=== PATIENT | female | born 1965 | race Caucasian/White ===

== ENCOUNTER 2021-09-10 16:45 | Emergency (ER) | payer SELFPAY ==
[~2021-09-10] VITALS: Ht 167.6 cm; Wt 72.6 kg
[2021-09-10 17:17] VITALS: BP 204/87
[2021-09-10] MEDS ORDERED: cloNIDine HCL 0.1 MG TAB PO ONE (18:45)
[2021-09-10 20:50] LABS: Basophils # (auto) 0.1 10 ^3/uL (0-0.2); Eosinophils # (auto) 0.1 10 ^3/uL (0-0.8); Hemoglobin 10.8 g/dL (12.2-16.2); Lymphocytes # (auto) 1.2 10 ^3/uL (0.4-5.4)
[2021-09-10 20:52] LABS: Basophils % (auto) 0.8 % (0.0-2.0); Eosinophils % (auto) 0.9 % (0.0-7.0); Hematocrit 33.9 % (36.0-46.0); Lymphocytes % (auto) 16.5 % (10.0-50.0); Mean Corpuscular Hemoglobin 25.5 pg (28.0-32.0); Mean Corpuscular Hgb Conc. 31.7 g/dL (32.0-36.0); Mean Corpuscular Volume 80.6 fL (80.0-100.0); Monocytes # (auto) 0.6 10 ^3/uL (0-1.3); Monocytes % (auto) 8.9 % (0.0-12.0); Neutrophils # (auto) 5.1 10 ^3/uL (1.6-8.6); Neutrophils % (auto) 72.9 % (37.0-80.0); Red Blood Cells 4.21 10^6/uL (4.0-5.20); Red Cell Distribution Width 18.9 % (11.8-14.3); White Blood Cell 7.1 10^3/uL (4.4-10.8)
[2021-09-10 21:25] LABS: Albumin 3.5 g/dL (3.4-5.0); BUN/Creatinine Ratio 23.8; Bilirubin, Total 0.7 mg/dL (0.2-1.0); Calcium 9.1 mg/dL (8.5-10.1); Total Protein 7.6 g/dL (6.4-8.2)
[2021-09-10] MEDS ORDERED: LOSA-69 PO (21:34)
== END 2021-09-11 08:58 | disposition left against medical advice (07) ==
LOC: ER 16:45 → EDBD 16:45 → ER 09-11 08:58
DX: I16.0 Hypertensive urgency (principal); R07.89 Other chest pain; E11.9 Type 2 diabetes mellitus without complications; I10 Essential (primary) hypertension
CPT/HCPCS: 36415; 71046; 80053; 83880; 84484; 85025; 93005

== ENCOUNTER 2025-07-10 04:21 | Inpatient (IN) | payer MEDICAID, OTHER ==
[~2025-07-10] VITALS: Ht 157.5 cm; Wt 90.0 kg
[~2025-07-10 04:21] MED LIST: LOSA-534 PO
--- NOTE | 2025-07-10 05:03 | ED.PDOC ---
Psychiatric HPI Comments HPI: 60-year-old female who came to ER for alcohol withdrawals. Patient has been sober for over a year, but started drinking alcohol heavily again for the past 2 weeks. Three days ago, intoxicated alcohol, she fell down and hit the back of her head and possibly lost consciousness. Last drank alcohol 3:00 p.m. yesterday. She started having visual hallucinations and mild tremors, she is considered she may be having withdrawal so she decided to come to the ER. She denies any use of prohibited drugs Past Medical History: Hypertension, diabetes on Ozempic Surgical History: Gastric bypass Family History: Denies Personal and Social History: Chronic daily alcohol drinker HPI: Poor Historian. Past Medical History: Past Surgical History: REVIEW OF SYSTEMS: CONSTITUTIONAL: Denies acute: fever, diaphoresis, chills, HEAD: Denies acute: headache, photophobia Eyes: Denies acute: Double vision, vision loss, eye pain, eye discharge. EARS: Denies acute: tinnitus, hearing loss, ear discharge, ear pain, THROAT: Denies acute: sore throat, swelling, difficulty swallowing , pain with swallowing, change in voice. NECK: Denies acute: neck pain, neck swelling, stiff neck. HEART: Denies acute : chest pain, palpitations, LUNGS: Denies acute: SOB, wheezing, cough, hemoptysis ABDOMEN: Denies acute: abdominal pain, Nausea, Vomiting, diarrhea, melena , hematemesis, hematochezia SKIN: Denies acute: rash, redness, lesions, itchiness. EXTREMITIES: Denies acute: calf pain, numbness, tingling, weakness, denies pain in extremity. Denies acute: Low back pain. Neuro: Denies acute: focal neurological deficit, motor or sensory focal neurological deficit, tremors, seizure like activity, confusion, dizziness, change in mental status, loss of bowel or bladder function, cauda equina like symptoms. : Denies acute: dysuria, hematuria, flank pain, increase in urinary frequency. PSYCH: Denies acute: suicidal ideation, homicidal ideation. FEMALE: Denies acute: abnormal vaginal bleeding, foul odor, unusual discharge. PHYSICAL EXAM: General: ----no----acute distress, awake and alert. Head: normocephalic, atraumatic. No raccoon's eyes, no ramirez sign. Neck: supple, trachea is midline, no swelling. Throat: Normal phonation. Eyes:, no erythema, no purulent discharge, no proptosis, no icterus. Heart: regular rate, regular rhythm, no significant murmur appreciated. Lungs: no apparent respiratory distress, Able to speak in full sentences. No wheezing, no rhonchi, no crackles. No stridors Clear to auscultation bilaterally. Abdomen: non tender to palpation, non distended, soft, no guarding, no rebound, + bowel sounds. Neuro: Awake, Alert, oriented to name, self, situation, follows commands GCS=15. Speech is normal. Skin: no petechia, no purpura, no cyanosis, non-pale, not jaundice. Lower extremities: --1/4 b/l - Pitting edema no deformity, no focal swelling, no calf TTP. Makes eye contact. moves all four extremities. Face: no apparent facial droop. Ambulating in the ED independently. ED COURSE: DISCLAIMER: This medical document was created using an electronic medical record system with voice recognition software and computerized dictation system. Although this document has been carefully reviewed, there might still be some phonetic and typographical errors. Occasional wrong-word or "sound-alike" substitutions may have occurred due to the inherent limitations of voice recognition software. These areas are purely typographical due to imperfections of the software programs and do not reflect any compromise in the patient's medical care. Please read the chart carefully and recognize, using context, where these substitutions have occurred. Chief Complaint: Withdrawal Time Seen by MD: 05:01 Primary Care Provider: JENNIFER Reviewed Notes: Nurses Notes, Allergies Information Source: Patient Mode of Arrival: Ambulatory Past Medical History PAST MEDICAL HISTORY: DM, HTN Surgical History: Denies all surgeries EARTH OBSERVATIONS CHIEF SCIENTIST History: No Pertinent EARTH OBSERVATIONS CHIEF SCIENTIST History Family History Family History: Family hx of heart scarlett Social History Smoker: Non-Smoker Alcohol: Heavy Drugs: Denies Drug Use Lives In: Home Was a procedure done? Was a procedure done?: No X-Ray, Labs, Meds, VS Vital Signs Date Time Temp Pulse Resp B/P (MAP) Pulse Ox O2 Delivery O2 Flow Rate FiO2 07/10/25 04:22 97.0 92 18 150/98 97 97.0 Lab Test 07/10/25 05:32 Range/Units White Blood Count Pending Red Blood Count Pending Hemoglobin Pending Hematocrit Pending Mean Corpuscular Volume Pending Mean Corpuscular Hemoglobin Pending Mean Corpuscular Hemoglobin Concent Pending Red Cell Distribution Width Pending Platelet Count Pending Mean Platelet Volume Pending Neutrophils (%) (Auto) Pending Lymphocytes (%) (Auto) Pending Monocytes (%) (Auto) Pending Basophils (%) (Auto) Pending Neutrophils # (Auto) Pending Lymphocytes # (Auto) Pending Monocytes # (Auto) Pending Sodium Level Pending Potassium Level Pending Chloride Level Pending Carbon Dioxide Level Pending Anion Gap Pending Blood Urea Nitrogen Pending Creatinine Pending Glomerular Filtration Rate Calc Pending BUN/Creatinine Ratio Pending Serum Glucose Pending Lactic Acid Level Pending Calcium Level Pending Magnesium Level Pending Total Bilirubin Pending Aspartate Amino Transferase (AST) Pending Alanine Aminotransferase (ALT) Pending Alkaline Phosphatase Pending Troponin I High Sensitivity Pending Total Protein Pending Albumin Pending Plasma/Serum Blood Alcohol Pending [place] [id number] Ph: [phone] DIAGNOSTIC IMAGING Diagnostic Imaging Report : [id number] Signed PATIENT: ELOY MORSE ACCT: [id number] UNIT: [id number] : 1965 LOC: ER ROOM / BED: / AGE / SEX: 60 / F ADM STATUS: REG ER SERVICE 0501 ORDERING PHYSICIAN: ROLAN LUA DO PROCEDURE(s): HWOCT - HEAD WITHOUT CONTRAST REASON: FALL ORDER NUMBER(s): [id number], ACCESSION NUMBER(s): [id number] EXAM: CT HEAD WITHOUT CONTRAST HISTORY: FALL COMPARISON: CT HEAD WITHOUT CONTRAST on DOS: 07/08/25 TECHNIQUE: Noncontrast axial CT images of the head were performed. Sagittal and coronal reformatted images were obtained. This CT exam was performed using 1 or more of the following dose reduction techniques: Automated exposure control, adjustment of the mA and/or kv according to patient size, or the use of iterative reconstruction techniques. Radiation Dose: CTDI volume is 53.99 mGy. Dose-length product is 863.9 mGy*cm FINDINGS: No intracranial hemorrhage, mass, midline shift, hydrocephalus, or evidence of acute large vessel infarct. There is decreased attenuation in the right frontal white matter. There are postoperative changes of bilateral cataract extraction surgery. The partially-visualized paranasal sinuses are clear. The bilateral mastoid air cells and middle ear spaces are clear. No cranial fracture. There is left parietal scalp edema. IMPRESSION: 1. No acute intracranial process. 2. Chronic ischemic changes in the right frontal white matter. 3. Left parietal scalp edema without underlying cranial fracture. ATED BY: FAB RAMIREZ MD DICTATED DATE/TIME: 07/10/25546 SIGNED BY: FAB RAMIREZ MD SIGNED DATE/TIME: 07/10/25546 CC: Time of 1ST Reevaluation: 05:03 Reevaluation 1ST: Unchanged Patient Education/Counseling: Diagnosis, Treatment Family Education/Counseling: No Family Present Departure 1 Departure Time of Disposition: 05:04 Impression: Primary Impression: Alcohol abuse Additional Impressions: Alcohol withdrawal Hallucinations due to alcohol Closed head injury Disposition: ADMITTED INPATIENT Admit to: Tele Condition: Guarded Discharged With: Self Critical Care Note Critical Care Time?: No I personally scribed for ROLAN LUA DO ([email or web address]) on 07/10/25 at 05:03. Electronically submitted by Rich Ya ([email or web address]). I personally scribed for ROLAN LUA DO ([email or web address]) on 07/10/25 at 05:04. Electronically submitted by Rich Ya ([email or web address]). I personally scribed for ROLAN LUA DO ([email or web address]) on 07/10/25 at 05:11. Electronically submitted by Rich Ya ([email or web address]). ROLAN LUA DO Jul 10, 2025 05:03
--- NOTE | 2025-07-10 05:50 | DVH ---
EXAM: CT HEAD WITHOUT CONTRAST HISTORY: FALL COMPARISON: CT HEAD WITHOUT CONTRAST on DOS: 07/08/25 TECHNIQUE: Noncontrast axial CT images of the head were performed. Sagittal and coronal reformatted images were obtained. This CT exam was performed using 1 or more of the following dose reduction techniques: Automated exposure control, adjustment of the mA and/or kv according to patient size, or the use of iterative reconstruction techniques. Radiation Dose: CTDI volume is 53.99 mGy. Dose-length product is 863.9 mGy*cm FINDINGS: No intracranial hemorrhage, mass, midline shift, hydrocephalus, or evidence of acute large vessel infarct. There is decreased attenuation in the right frontal white matter. There are postoperative changes of bilateral cataract extraction surgery. The partially-visualized paranasal sinuses are clear. The bilateral mastoid air cells and middle ear spaces are clear. No cranial fracture. There is left parietal scalp edema. IMPRESSION: 1. No acute intracranial process. 2. Chronic ischemic changes in the right frontal white matter. 3. Left parietal scalp edema without underlying cranial fracture.
[2025-07-10] MEDS: THIAMINE HCL 100 MG TAB PO ONE (06:25)
[2025-07-10 06:28] LABS: Hematocrit 33.8 % (36.0-46.0); Hemoglobin 11.1 g/dL (12.2-16.2); Mean Corpuscular Hemoglobin 31.4 pg (28.0-32.0); Mean Corpuscular Volume 95.8 fL (80.0-100.0); Nucleated Red Blood Cells % 0.0 %
[2025-07-10] MEDS: SODIUM CHLORIDE 0.9% 1,000 ML IV ONE ×2 (06:30→10:56)
[2025-07-10 06:33] LABS: Alanine Aminotransferase 21 U/L (7-40); Albumin 4.0 g/dL (3.2-4.8); BUN/Creatinine Ratio 15.7 (10.0-20.0); Blood Urea Nitrogen 16 mg/dL (9-23); Calcium 8.8 mg/dL (8.7-10.4); Carbon Dioxide 27 mmol/L (20-31); Magnesium 1.7 mg/dL (1.6-2.6); Potassium 3.9 mmol/L (3.5-5.1); Sodium 144 mmol/L (136-145); Total Protein 6.9 g/dL (5.7-8.2)
[2025-07-10 06:34] LABS: Bilirubin, Total 0.5 mg/dL (0.2-1.0)
[2025-07-10 07:01] LABS: Alkaline Phosphatase 175 U/L (46-116); Glucose 122 mg/dL (74-106)
[2025-07-10] MEDS: LORazepam 2MG/ML-1ML VIAL IV ONE (07:02)
[2025-07-10 07:05] LABS: Urine Protein, UAD TRACE (Negative)
[2025-07-10 09:07] LABS: Anion Gap 8 (5-15)
[2025-07-10] MEDS ORDERED: ENOXAPARIN SOD 40 MG/0.4 ML SYRINGE SC SCH (09:30)
[2025-07-10] MEDS ORDERED: DOCUSATE SOD 100 MG CAP PO PRN (09:30)
[2025-07-10] MEDS ORDERED: ONDANSETRON HCL 4 MG/2 ML VIAL IV PRN (09:30)
[2025-07-10] MEDS: SODIUM CHLORIDE 0.9% 1,000 ML IV SCH (09:30)
[2025-07-10] MEDS ORDERED: THIAMINE 100mg/ml INJ (200mg/2ml VIAL) IV ONE (09:45)
[2025-07-10] MEDS ORDERED: LORazepam 2MG/ML-1ML VIAL IV PRN (09:45)
--- NOTE | 2025-07-10 09:48 | DVHHPRES ---
History of Present Illness Resident Creating Document: DOREEN PALM RESIDENT History of Present Illness Skinner,a 60-year-old female with a history of hypertension, diabetes (on Ozempic), alcohol abuse and gastric bypass surgery presents to the ED for evaluation of alcohol withdrawal. Although she had been sober for over a year, she resumed heavy alcohol use over the past two weeks. She last consumed alcohol at 3:00 p.m. yesterday and began experiencing visual hallucinations and mild tremors, prompting her to seek care. Three days ago, while intoxicated, she fell and struck the back of her head, possibly losing consciousness. She denies use of illicit drugs and reports chronic daily alcohol consumption. Previously seen earlier this week for similar complaints patient left AMA. Past Medical History: Hypertension, diabetes on Ozempic, GERD Surgical History: Gastric bypass Family History: Non contributory Personal and Social History: Chronic daily alcohol drinker, last alcohol non - forthcoming Review of Systems Constitutional: Yes: Weakness, Malaise; No: Fever, Chills, Sweats, Other Eyes: No: Pain, Vision change, Conjunctivae inflammation, Eyelid inflammation, Other, Redness ENT: No: Ear pain, Ear discharge, Nose pain, Nose discharge, Nose congestion, Mouth pain, Mouth swelling, Throat pain, Throat swelling, Other Respiratory: No: Cough, Dry, Shortness of breath, SOB with excertion, Wheezing, Hemoptysis, Pleuritic Pain, Sputum, Wheezing, Other Cardiovascular: Palpitations; No: Chest Pain, Orthopnea, Paroxysmal Noc. Dyspnea, Edema, Lt Headedness, Other Gastrointestinal: Nausea; No: Vomiting, Abdominal Pain, Diarrhea, Constipation, Melena, Hematochezia, Other Genitourinary: Dysuria, Frequency, Incontinence; No Hematuria, No Retention, No Other Musculoskeletal: No: other, neck pain, shoulder pain, arm pain, back pain, hand pain, leg pain, foot pain Skin: No: Rash, Lesions, Jaundice, Bruising, Other Neurological: Weakness, Incoordination, Other (recurrent fall); No: Numbness, Change in speech, Confusion, Seizures Allergies: Coded Allergies: No Known Drug Allergy (Verified Allergy, Unknown, 07/10/25) Exam Vital Signs Vital Signs Date Time Temp Pulse Resp B/P (MAP) Pulse Ox O2 Delivery O2 Flow Rate FiO2 07/10/25 08:00 97.2 83 18 179/109 (132) 95 97.2 07/10/25 06:30 Room Air General Appearance: Alert, Oriented X3, mild distress HEENT: Atraumatic, PERRLA, EOMI, Other (dry mucosa) Respiratory: Clear to auscultation, Normal air movement Cardiovascular: Regular rate, Normal S1, Normal S2, No murmurs Abdominal: Normal bowel sounds, Soft, No tenderness, No hepatospenomegaly, No masses Extremities: No clubbing, No cyanosis, Other (mild tremors b/l ) Skin: No rashes, No breakdown, No significant lesion Neuro: Normal gait, Normal speech, Strength at 5/5 X4 ext, Normal tone, Other Psych/Mental Status: Other (anxious. ) Labs/Xrays Labs Test 07/10/25 06:43 07/10/25 05:32 Range/Units Urine Color Yellow Yellow Urine Clarity Clear Clear Urine pH 6.0 5.0-9.0 Urine Specific Theodore 1.020 1.001-1.035 Urine Protein Trace H Negative Urine Ketones Negative Negative Urine Blood Negative Negative /uL Urine Nitrite Negative Negative Urine Bilirubin Negative Negative Urine Urobilinogen 2 H Negative mg/dL Urine Leukocyte Esterase 2+ Negative /uL Urine RBC 1 0 - 4 /hpf Urine Microscopic WBC 6 H 0-5 /HPF Urine Squamous Epithelial Cells Few <5 /hpf Urine Bacteria None seen None Seen /hpf Urine Glucose Normal Normal mg/dL White Blood Count 6.8 4.4-10.8 10^3/uL Red Blood Count 3.53 L 4.0-5.20 10^6/uL Hemoglobin 11.1 L 12.2-16.2 g/dL Hematocrit 33.8 L 36.0-46.0 % Mean Corpuscular Volume 95.8 80.0-100.0 fL Mean Corpuscular Hemoglobin 31.4 28.0-32.0 pg Mean Corpuscular Hemoglobin Concent 32.8 32.0-36.0 g/dL Red Cell Distribution Width 16.7 H 11.8-14.3 % Platelet Count 222 140-450 10^3/uL Mean Platelet Volume 7.6 6.9-10.8 fL Neutrophils (%) (Auto) 75.2 37.0-80.0 % Lymphocytes (%) (Auto) 15.3 10.0-50.0 % Monocytes (%) (Auto) 6.9 0.0-12.0 % Eosinophils (%) (Auto) 2.2 0.0-7.0 % Basophils (%) (Auto) 0.4 0.0-2.0 % Neutrophils # (Auto) 5.1 1.6-8.6 10 ^3/uL Lymphocytes # (Auto) 1.0 0.4-5.4 10 ^3/uL Monocytes # (Auto) 0.5 0-1.3 10 ^3/uL Eosinophils # (Auto) 0.1 0-0.8 10 ^3/uL Basophils # (Auto) 0 0-0.2 10 ^3/uL Nucleated Red Blood Cells 0.0 % Sodium Level 144 136-145 mmol/L Potassium Level 3.9 3.5-5.1 mmol/L Chloride Level 98-107 mmol/L Carbon Dioxide Level 27 20-31 mmol/L Anion Gap 8 5-15 Blood Urea Nitrogen 16 9-23 mg/dL Creatinine 1.02 0.550-1.02 mg/dL Glomerular Filtration Rate Calc 63 >90 mL/min BUN/Creatinine Ratio 15.7 10.0-20.0 Serum Glucose 122 H 74-106 mg/dL Lactic Acid Level 1.4 0.4-2.0 mmol/L Calcium Level 8.8 8.7-10.4 mg/dL Magnesium Level 1.7 1.6-2.6 mg/dL Total Bilirubin 0.5 0.2-1.0 mg/dL Aspartate Amino Transferase (AST) 22 13-40 U/L Alanine Aminotransferase (ALT) 21 7-40 U/L Alkaline Phosphatase 175 H 46-116 U/L Troponin I High Sensitivity 18 </=34 ng/L Total Protein 6.9 5.7-8.2 g/dL Albumin 4.0 3.2-4.8 g/dL Plasma/Serum Blood Alcohol < 3.0 <10 mg/dL SEPSIS Sepsis Screen Date sepsis recognized/suspect: Jul 10, 2025 Time Sepsis recognized/suspect: 426 Recent Procedure: No On Antibiotic Therapy: No Respiratory Rate >20: No Heart Rate >90: Yes Temp<36 C (96.8 F) or >38.3 C: No SBP <90 or MAP <65 mmHG: No New Acute Mental Status Change: No Is the patient on CPAP, BIPAP,: No Physician Orders Compliance Officer (07/10/25 ) Electrocardigram (07/10/25 05:01) Head Without Contrast (07/10/25 05:01) Admit (07/10/25:24) Allergies (07/10/25:) Code Status (07/10/25:) Sodium Chloride 0.9% (07/10/25 09:30) Ondansetron Hcl (Zofran) (07/10/25 09:30) Docusate Sodium Capsule (Colace Capsule) (07/10/25 09:30) Multiple Vitamin Tablet (Mvi Tab) (07/10/25 10:00) Fall Risk Precautions In Place QSHIFT (07/10/25:) Complete Blood Count (07/11/25 04:00) Comprehensive Metabolic Panel (07/11/25 04:00) Echo 2d Mode Cardiac Dop (07/10/25:24) Condition: Serious (07/10/25:24) Clear Liq Diet (07/10/25 Breakfast) Morphine Sulfate Injection (07/10/25 09:30) Sequential Compression Device (07/10/25 ) Ceftriaxone 1gm/50ml (Rocephin) (07/10/25 10:00) Labetalol Hcl (Labetalol Hcl) (07/10/25 09:30) Drug Screen (07/10/25 09:33) Lipase (07/10/25 09:33) Vitamin B12 (07/10/25 09:33) Folate (Folic Acid) (07/10/25 09:33) Pt Request For Service (07/10/25 09:33) Accucheck (07/10/25 09:33) Sodium Chloride 0.9% (07/10/25 09:45) Magnesium (07/10/25 09:33) Chest Two Views Routine (07/10/25 09:33) Thiamine Tab (07/10/25 10:00) Folic Acid Tablet (07/10/25 10:00) Multiple Vitamin Tablet (Mvi Tab) (07/10/25 10:00) Multiple Vitamin Tablet (Mvi Tab) (07/10/25 09:45) D5w 5% (Dextrose 5%) W/Folic Acid (11/9/25 09:45) Lorazepam 2mg/Ml Inj (Ativan Inj) (07/10/25 09:45) Etoh Withdrawal Assessment (07/10/25 09:33) Etoh Withdrawal Assessment NOW (07/10/25 09:33) Thiamine Inj (07/10/25 09:45) Enoxaparin Sodium (Lovenox) (07/10/25 10:00) Fluoxetine Capsule (Prozac Capsule) (07/10/25 10:00) Losartan Tablet (Cozaar Tablet) (07/10/25 10:00) Prothrombin Time W/ Inr (07/10/25 09:45) Vital Signs Date Time Temp Pulse Resp B/P (MAP) Pulse Ox O2 Delivery O2 Flow Rate FiO2 07/10/25 08:00 97.2 83 18 179/109 (132) 95 97.2 07/10/25 06:30 94 16 96 Room Air 07/10/25 06:30 98.4 94 16 160/88 (112) 96 98.4 07/10/25 04:22 97.0 92 18 150/98 97 97.0 Laboratory Tests Test 07/10/25 05:32 Lactic Acid Level 1.4 mmol/L (0.4-2.0) White Blood Count 6.8 10^3/uL (4.4-10.8) Medications Medications Dose Ordered Sig/Radha Route Start Time Stop Time Status Last Admin Dose Admin Chlordiazepoxide HCl 25 mg ONCE ONCE PO 07/10/25 06:45 07/10/25 06:46 DC 07/10/25 06:54 25 MG Lorazepam 1 mg ONCE ONCE IV 07/10/25 06:45 07/10/25 06:46 DC 07/10/25 07:02 1 MG Sodium Chloride 1,000 ml @ 1,000 mls/hr Q1H ONCE IV 07/10/25 05:15 07/10/25 06:14 DC 07/10/25 06:30 1,000 MLS/HR Thiamine HCl 100 mg ONCE ONCE PO 07/10/25 05:15 07/10/25 05:16 DC 07/10/25 06:25 100 MG Assessment/Plan Assessment/Plan Assessment and plan: # Acute alcohol withdrawal: moderate risk on CIWA protocol with iv ativan, mvi, folate, and thiamine, tomorrow can consider bannana bags. cxr to r/o aspiration pneumonia, on room air. # Grade 1 obesity 34.7 BMI: weight loss counseling., on home Ozempic, we will hold Ozempic given nausea and vomiting. Careful history to rule out any family history of thyroid cancer. # Uncontrolled essential hypertension: Likely complicated due to medication noncompliance, alcohol abuse, target blood pressure 140/90 or below, IV propranolol, start oral home antihypertensives. Home medication losartan 50 mg p.o. daily, patient do not remember taking medications regularly. # Normocytic anemia: HnH, 11.1, RDW, 60.7, could be dietary, denies any active bleeding. dietary intake of iron to continue. # Likely UTI: nonspecific symptoms, lower abdominal pain, rule out other causes of abdominal pain, lipase, lactic acid negative. iv ceftriaxone to continue. # Recurrent fall: Likely due to alcohol intoxication, folate and b12 to check, ambulatory. Patient fell down this time on head, no acute local neuromuscular deficits noted. Mildly agitated likely due to withdrawals, CT head negative for intracranial acute processes but left parietal scalp edema likely due to blunt trauma. Pain control, check for B12, folate, replenished, physical therapy before discharge. For safe discharge. Chronic ischemic changes in the right frontal white matter likely due to underlying vascular/hypertensive disease. # Unknown LVEF: Known LVH, hypertensive hydralazine, blood pressure control, given severe alcohol abuse, ruled out dilated cardiomyopathy/echo/LVEF f to check. # GERD/alcohol gastritis: Continue PPI # Chronic back pain: Ibuprofen and cyclobenzaprine, we will hold NSAIDs, PT eval, for now can use lidocaine patch as needed. Gabapentin 400 mg t.i.d., can restart as it will help also with the alcohol withdrawal symptoms. # Known depression/anxiety disorder: Fluoxetine 40 mg daily to continue. PUD prophylaxis: protonix 40mg DVT prophylaxis: Levonox 40mg Barriers to discharge: Medical diagnosis and management in progress. Patient lives with family. Independent for ADL. PT and SW consult as needed. PCP: Non-adherence Case discussed with Dr. Lares. Code Status: Full Code/ DNR+DNI/ Modified Chemical Code. Discussion needed total 29 minutes bedside. Plan discussed with: Patient My Orders Orders - DOREEN PALM RESIDENT Procedure Category Date Status Time Admit ADMIT 07/10/25 Transmitted 09:24 Allergies MARLENI 07/10/25 In Process 09:24 Code Status CODE 07/10/25 Transmitted 09:24 Sodium Chloride 0.9% PHA 07/10/25 In Process 09:30 Ondansetron Hcl PHA 07/10/25 In Process (Zofran) 09:30 Docusate Sodium PHA 07/10/25 In Process Capsule (Colace 09:30 Multiple Vitamin PHA 07/10/25 In Process Tablet (Mvi Tab) 10:00 Fall Risk Precautions MARLENI 07/10/[address] 09:24 Complete Blood Count LAB 07/11/25 Verified 04:00 Comprehensive LAB 07/11/25 Verified Metabolic Panel 04:00 Echo 2d Mode Cardiac US 07/10/25 Logged DOP 09:24 Condition: Serious MARLENI 07/10/25 In Process 09:24 Clear Liq Diet DIET 07/10/25 Transmitted Breakfast Morphine Sulfate PHA 07/10/25 In Process Injection 09:30 Sequential MARLENI 07/10/25 In Process Compression Device Ceftriaxone 1gm/50ml PHA 07/10/25 In Process (Rocephin) 10:00 Labetalol Hcl PHA 07/10/25 In Process (Labetalol Hcl) 09:30 Drug Screen LAB 07/10/25 Logged 09:33 Lipase LAB 07/10/25 Logged 09:33 Vitamin B12 LAB 07/10/25 Logged 09:33 Folate (Folic Acid) LAB 07/10/25 Logged 09:33 Pt Request For Service PT 07/10/25 Logged 09:33 Accucheck ED NURSING 07/10/25 Transmitted 09:33 Sodium Chloride 0.9% PHA 07/10/25 Logged 09:45 Magnesium LAB 07/10/25 Logged 09:33 Chest Two Views XY 07/10/25 Logged Routine 09:33 Thiamine Tab PHA 07/10/25 Logged 10:00 Folic Acid Tablet PHA 07/10/25 Logged 10:00 Multiple Vitamin PHA 07/10/25 Logged Tablet (Mvi Tab) 10:00 Multiple Vitamin PHA 07/10/25 Logged Tablet (Mvi Tab) 09:45 D5w 5% (Dextrose 5%) PHA 07/10/25 Logged W/Folic Acid 09:45 Lorazepam 2mg/Ml Inj PHA 07/10/25 Logged (Ativan Inj) 09:45 Etoh Withdrawal MARLENI 07/10/25 In Process Assessment 09:33 Etoh Withdrawal MARLENI 07/10/25 In Process Assessment 09:33 Thiamine Inj PHA 07/10/25 Logged 09:45 Enoxaparin Sodium PHA 07/10/25 In Process (Lovenox) 10:00 Fluoxetine Capsule PHA 07/10/25 Logged (Prozac Capsule) 10:00 Losartan Tablet PHA 07/10/25 Logged (Cozaar Tablet) 10:00 Prothrombin Time W/ LAB 07/10/25 Transmitted INR 09:45 Date of Service: Jul 10, 2025 Billing Provider: CHAN LARES MD Common Visit Codes: [id number] INP/OBS CARE (HIGH) Secondary Visit Codes: [id number] CARE PLAN 30 MINUTES DOREEN PALM RESIDENT Jul 10, 2025 09:48
[2025-07-10] MEDS ORDERED: FOLIC ACID 1 MG TAB PO SCH (10:00)
[2025-07-10] MEDS ORDERED: MULTIPLE VITAMIN TAB PO SCH (10:00)
[2025-07-10 10:23] LABS: Lipase 39.0 U/L (12-53)
--- NOTE | 2025-07-10 10:23 | DVH ---
XY CHEST TWO VIEWS ROUTINE, HISTORY: rule out aspiration, right lower lobe aspiration. COMPARISON: XY CHEST TWO VIEWS ROUTINE on DOS: 07/08/25, XR CHEST 2 VIEWS on DOS: 05/12/23 XY CHEST TWO VIEWS ROUTINE on DOS: 07/08/25, XR CHEST 2 VIEWS on DOS: 05/12/23 TECHNICAL DATA: 2 view of the chest was obtained. FINDINGS: Lines and tubes: None Cardiomediastinal silhouette: normal Pulmonary vasculature: normal Lung expansion: normal Lung airspace: normal Lung interstitium: normal Pleura: normal Pneumothorax: no Bones: Unremarkable Other: no IMPRESSION: No acute intrathoracic abnormality.
[2025-07-10 10:24] LABS: Magnesium 1.7 mg/dL (1.6-2.6)
[2025-07-10] MEDS: MULTIPLE VITAMIN TAB PO ONE (10:36)
[2025-07-10] MEDS: ENOXAPARIN SOD 40 MG/0.4 ML SYRINGE SC SCH (10:36)
[2025-07-10] MEDS: LOSARTAN POTASSIUM 25 MG TAB PO SCH (10:36)
[2025-07-10] MEDS: FOLIC ACID 1 MG in D5W 5% 50 ML INJ ONE (10:56)
[2025-07-10 11:50] LABS: INR 1.01 (0.9-1.15); Prothrombin Time 10.7 sec (9.3-11.8)
--- NOTE | 2025-07-10 13:28 | DVHSR ---
APPROVED REPORT EXAM: Two-dimensional and M-mode echocardiogram with Doppler and color Doppler. Blood Pressure: 179/109 mmHg INDICATION Rule out structural heart disease RISK FACTORS Obesity: Height: 5' 2", Weight: 189 DIMENSIONS LVDd 4.5 (3.8-5.7cm) LA (2D) 5.1 (1.9-4.0cm) Aortic Root 2.8 (2.0-3.7cm) LVDs 3.3 (2.5-4.0cm) LA (MM) (1.9-4.0cm) Aortic Cusp Exc 1.8 (1.5-2.0cm) EF (%) 55.0 (55-70%) Rt. Atrium 4.8 (1.9-4.0cm) Asc. Aorta cm IVSd 1.2 (0.7-1.1cm) RV (D) (1.8-2.4cm) PWd 1.1 (0.7-1.1cm) Mitral Valve Mitral Mitral Stenosis E wave 1.20m/s MV Mean GR. mmHg A wave 1.40m/s MV Peak GR. mmHg E/A ratio 0.9 2D MVA cm2 Aortic Valve Aortic Valve Aortic Stenosis V1 0.90m/s AO Mean GR. 3mmHg V2 1.20m/s AO Peak GR. 6mmHg LVOT Diameter 2.2 (1.8-2.4cm) Doppler LEO 2.85cm2 Conclusion LAE FLASH EF >55%
[2025-07-10] MEDS: MORPHINE SULFATE 4 MG/ML SYR/VIAL ONE (15:24)
[2025-07-10] MEDS: LABETALOL HCL 20 MG/4 ML VL IV PRN (15:25)
[2025-07-10] MEDS: MORPHINE SULFATE INJ 2 MG/ml SYRG IV PRN (15:25)
[2025-07-10 19:00] VITALS: PULSE 73; O2SAT 94
[2025-07-10 22:33] LABS: Benzodiazephine Screen, Urine Neg (NEGATIVE)
[2025-07-10 22:34] LABS: Cannabinoid Screen, Urine Neg (NEGATIVE)
[2025-07-10 23:09] VITALS: BP 184/92; PULSE 67; RESP 20; TEMP 97.7; O2SAT 95
[2025-07-10 23:10] VITALS: BP 184/92; PULSE 67; RESP 20; TEMP 97.7; O2SAT 95
[2025-07-10 23:11] LABS: Amphetamine Screen, Urine Neg (NEGATIVE); Barbiturate Scree,Urine Neg (NEGATIVE); Cocaine Screen, Urine Neg (NEGATIVE); Opiate Scree,Urine Neg (NEGATIVE); Phencyclidine Screen, Urine Neg (NEGATIVE)
[2025-07-11] VITALS (8 sets, daily range): BP systolic 103–174; BP diastolic 61–103; PULSE 66–89; RESP 16–22; TEMP 97.3–97.9; O2SAT 94–99
[2025-07-11 06:52] LABS: Hematocrit 31.4 % (36.0-46.0); Hemoglobin 10.5 g/dL (12.2-16.2); Mean Corpuscular Hemoglobin 32.0 pg (28.0-32.0); Mean Corpuscular Volume 95.6 fL (80.0-100.0); Nucleated Red Blood Cells % 0.1 %
[2025-07-11 07:13] LABS: Alanine Aminotransferase 18 U/L (7-40); Albumin 3.6 g/dL (3.2-4.8); Anion Gap 7 (5-15); BUN/Creatinine Ratio 11.7 (10.0-20.0); Calcium 8.8 mg/dL (8.7-10.4); Carbon Dioxide 28 mmol/L (20-31); Glucose 88 mg/dL (74-106); Potassium 4.0 mmol/L (3.5-5.1); Sodium 143 mmol/L (136-145); Total Protein 6.2 g/dL (5.7-8.2)
[2025-07-11 07:14] LABS: Bilirubin, Total 0.5 mg/dL (0.2-1.0)
[2025-07-11 07:24] LABS: Alkaline Phosphatase 148 U/L (46-116); Blood Urea Nitrogen 9 mg/dL (9-23); Chloride 108 mmol/L (98-107)
[2025-07-11] MEDS: THIAMINE HCL 100 MG TAB PO SCH (08:47)
[2025-07-11] MEDS: FOLIC ACID 1 MG TAB PO SCH (08:48)
[2025-07-11] MEDS: MULTIPLE VITAMIN TAB PO SCH (08:48)
[2025-07-11] MEDS ORDERED: MULTIPLE VITAMIN TAB PO SCH (10:00)
--- NOTE | 2025-07-11 13:02 | DVHPN2 ---
Subjective no hallucinatios or tremors today Reviewed: H&P Changes from previous H/P or p: No Changes Eyes: No Pain, No Vision change, No Conjunctivae inflammation, No Eyelid inflammation, No Other, No Redness ENT: No Ear pain, No Ear discharge, No Nose pain, No Nose discharge, No Nose congestion, No Mouth pain, No Mouth swelling, No Throat pain, No Throat swelling, No Other Cardiovascular: No Chest Pain; Palpitations; No Orthopnea, No Paroxysmal Noc. Dyspnea, No Edema, No Lt Headedness, No Other Respiratory: No Cough, No Dry, No Shortness of breath, No SOB with excertion, No Wheezing, No Hemoptysis, No Pleuritic Pain, No Sputum, No Other Gastrointestinal: Nausea; No Vomiting, No Abdominal Pain, No Diarrhea, No Constipation, No Melena, No Hematochezia, No Other Genitourinary: Dysuria, Frequency, Incontinence; No Hematuria, No Retention, No Other Musculoskeletal: No other, No neck pain, No shoulder pain, No arm pain, No back pain, No hand pain, No leg pain, No foot pain Skin: No Rash, No Lesions, No Jaundice, No Bruising, No Other Objective Vitals Vital Signs Date Time Temp Pulse Resp B/P (MAP) Pulse Ox O2 Delivery O2 Flow Rate FiO2 07/11/25 11:17 82 171/107 07/11/25 09:00 97.8 20 97 97.8 07/11/25 08:00 Room Air* 0 21 Intake/Output Intake and Output 07/11/25 07:00 Intake Total 230 ml Balance 230 ml Intake Oral 180 ml IV Total 50 ml General Appearance: Alert, Oriented X3 HEENT: Atraumatic Lungs: Clear to auscultation Cardiovascular: Regular rate, Normal S1, Normal S2 Abdomen: Normal bowel sounds Medications Current Medications Medications Dose Ordered Sig/Radha Route Start Time Stop Time Status Last Admin Dose Admin Ondansetron HCl 4 mg Q4HP PRN IV 07/10/25 09:30 Docusate Sodium 100 mg BIDPRN PRN PO 07/10/25 09:30 Morphine Sulfate 2 mg Q4HPRN PRN IV 07/10/25 09:30 07/10/25 15:25 2 MG Ceftriaxone Sodium 50 ml @ 100 mls/hr DAILY IV 07/10/25 10:00 07/11/25 08:50 100 MLS/HR Labetalol HCl 10 mg Q2HPRN PRN IV 07/10/25 09:30 07/11/25 11:17 10 MG Enoxaparin Sodium 40 mg DAILY SC 07/10/25 10:00 07/15/25 11:59 07/11/25 08:49 40 MG Thiamine HCl 100 mg DAILY PO 07/11/25 10:00 07/11/25 08:47 100 MG Multivitamins 1 tab DAILY PO 07/11/25 10:00 07/11/25 08:48 1 TAB Lorazepam 1 mg Q2HPRN PRN IV 07/10/25 09:45 Fluoxetine HCl 40 mg DAILY PO 07/10/25 10:00 07/11/25 08:48 40 MG Losartan Potassium 25 mg DAILY PO 07/10/25 10:00 07/11/25 08:48 25 MG Folic Acid 1 mg DAILY PO 07/11/25 10:00 07/11/25 08:48 1 MG Laboratory Results Laboratory Tests 07/11/25 05:54 Chemistry Test 07/11/25 05:54 Albumin 3.6 g/dL (3.2-4.8) Calcium Level 8.8 mg/dL (8.7-10.4) Total Protein 6.2 g/dL (5.7-8.2) LFT Test 07/11/25 05:54 Alanine Aminotransferase (ALT) 18 U/L (7-40) Alkaline Phosphatase 148 U/L (46-116) H Aspartate Amino Transferase (AST) 21 U/L (13-40) Total Bilirubin 0.5 mg/dL (0.2-1.0) Urinalysis Test 07/10/25 06:43 Urine Color Yellow (Yellow) Urine Clarity Clear (Clear) Urine pH 6.0 (5.0-9.0) Urine Specific [place] 1.020 (1.001-1.035) Urine Protein Trace (Negative) H Urine Ketones Negative (Negative) Urine Blood Negative /uL (Negative) Urine Nitrite Negative (Negative) Urine Bilirubin Negative (Negative) Urine Urobilinogen 2 mg/dL (Negative) H Urine Leukocyte Esterase 2+ /uL (Negative) Urine RBC 1 /hpf (0 - 4) Urine Microscopic WBC 6 /HPF (0-5) H Urine Squamous Epithelial Cells Few /hpf (<5) Urine Bacteria None seen /hpf (None Seen) Urine Glucose Normal mg/dL (Normal) Assessment/Plan Assessment/Plan # Acute alcohol withdrawal: moderate risk on CIWA protocol with iv ativan, mvi, folate, and thiamine, tomorrow can consider bannana bags. cxr to r/o aspiration pneumonia, on room air. # Grade 1 obesity 34.7 BMI: weight loss counseling., on home Ozempic, we will hold Ozempic given nausea and vomiting. Careful history to rule out any family history of thyroid cancer. # Uncontrolled essential hypertension: Likely complicated due to medication noncompliance, alcohol abuse, target blood pressure 140/90 or below, IV propranolol, start oral home antihypertensives. Home medication losartan 50 mg p.o. daily, patient do not remember taking medications regularly. # Normocytic anemia: HnH, 11.1, RDW, 60.7, could be dietary, denies any active bleeding. dietary intake of iron to continue. # Likely UTI: nonspecific symptoms, lower abdominal pain, rule out other causes of abdominal pain, lipase, lactic acid negative. iv ceftriaxone to continue. # Recurrent fall: Likely due to alcohol intoxication, folate and b12 to check, ambulatory. Patient fell down this time on head, no acute local neuromuscular deficits noted. Mildly agitated likely due to withdrawals, CT head negative for intracranial acute processes but left parietal scalp edema likely due to blunt trauma. Pain control, check for B12, folate, replenished, physical therapy before discharge. For safe discharge. Chronic ischemic changes in the right frontal white matter likely due to underlying vascular/hypertensive disease. # Unknown LVEF: Known LVH, hypertensive hydralazine, blood pressure control, given severe alcohol abuse, ruled out dilated cardiomyopathy/echo/LVEF f to check. # GERD/alcohol gastritis: Continue PPI # Chronic back pain: Ibuprofen and cyclobenzaprine, we will hold NSAIDs, PT eval, for now can use lidocaine patch as needed. Gabapentin 400 mg t.i.d., can restart as it will help also with the alcohol withdrawal symptoms. # Known depression/anxiety disorder: Fluoxetine 40 mg daily to continue. Dispo: DC tomorro Plan discussed with: Patient Date of Service: Jul 11, 2025 Billing Provider: HAYDER FARRAR MD Common Visit Codes: [id number] INP/OBS CARE(HIGH) HAYDER FARRAR MD Jul 11, 2025 13:02
[2025-07-11] MEDS: MORPHINE SULFATE 4 MG/ML SYR/VIAL IV PRN (15:37)
[2025-07-12] VITALS (8 sets, daily range): BP systolic 135–175; BP diastolic 53–104; PULSE 72–84; RESP 14–20; TEMP 97.1–98.3; O2SAT 92–97
[2025-07-12] MEDS: HYDROcodone-ACET 5/325MG TAB PO PRN (13:27)
[2025-07-12] MEDS ORDERED: hydrALAZINE HCL 20 MG/ML VL IV PRN (13:45)
--- NOTE | 2025-07-12 14:24 | DVHPN2 ---
Reviewed: H&P Changes from previous H/P or p: No Changes General: Per HPI Eyes: No Pain, No Vision change, No Conjunctivae inflammation, No Eyelid inflammation, No Other, No Redness ENT: No Ear pain, No Ear discharge, No Nose pain, No Nose discharge, No Nose congestion, No Mouth pain, No Mouth swelling, No Throat pain, No Throat swelling, No Other Cardiovascular: No Chest Pain; Palpitations; No Orthopnea, No Paroxysmal Noc. Dyspnea, No Edema, No Lt Headedness, No Other Respiratory: No Cough, No Dry, No Shortness of breath, No SOB with excertion, No Wheezing, No Hemoptysis, No Pleuritic Pain, No Sputum, No Other Gastrointestinal: Nausea; No Vomiting, No Abdominal Pain, No Diarrhea, No Constipation, No Melena, No Hematochezia, No Other Genitourinary: Dysuria, Frequency, Incontinence; No Hematuria, No Retention, No Other Musculoskeletal: No other, No neck pain, No shoulder pain, No arm pain, No back pain, No hand pain, No leg pain, No foot pain Skin: No Rash, No Lesions, No Jaundice, No Bruising, No Other Objective Vitals Vital Signs Date Time Temp Pulse Resp B/P (MAP) Pulse Ox O2 Delivery O2 Flow Rate FiO2 07/12/25 13:24 98.1 79 16 169/74 (105) 95 98.1 07/12/25 08:06 Room Air* 0 21 Intake/Output Intake and Output 07/12/25 07:00 Intake Total 450 ml Balance 450 ml Intake Oral 400 ml IV Total 50 ml # Voids 8 Exam General Appearance: Alert, Oriented X3, mild distress HEENT: Atraumatic, PERRLA, EOMI, Other (dry mucosa) Respiratory: Clear to auscultation, Normal air movement Cardiovascular: Regular rate, Normal S1, Normal S2, No murmurs Abdominal: Normal bowel sounds, Soft, No tenderness, No hepatospenomegaly, No masses Extremities: No clubbing, No cyanosis, Other (mild tremors b/l ) Skin: No rashes, No breakdown, No significant lesion Neuro: Normal gait, Normal speech, Strength at 5/5 X4 ext, Normal tone, Other Psych/Mental Status: Other (anxious. ) General Appearance: Alert, Oriented X3 HEENT: Atraumatic Lungs: Clear to auscultation Cardiovascular: Regular rate, Normal S1, Normal S2 Abdomen: Normal bowel sounds Medications Current Medications Medications Dose Ordered Sig/Radha Route Start Time Stop Time Status Last Admin Dose Admin Ondansetron HCl 4 mg Q4HP PRN IV 07/10/25 09:30 Docusate Sodium 100 mg BIDPRN PRN PO 07/10/25 09:30 Ceftriaxone Sodium 50 ml @ 100 mls/hr DAILY IV 07/10/25 10:00 07/12/25 09:23 100 MLS/HR Enoxaparin Sodium 40 mg DAILY SC 07/10/25 10:00 07/15/25 11:59 07/12/25 09:25 40 MG Thiamine HCl 100 mg DAILY PO 07/11/25 10:00 07/12/25 09:23 100 MG Multivitamins 1 tab DAILY PO 07/11/25 10:00 07/12/25 09:24 1 TAB Lorazepam 1 mg Q2HPRN PRN IV 07/10/25 09:45 Fluoxetine HCl 40 mg DAILY PO 07/10/25 10:00 07/12/25 09:25 40 MG Folic Acid 1 mg DAILY PO 07/11/25 10:00 07/12/25 09:23 1 MG Morphine Sulfate 2 mg Q4HPRN PRN IV 07/11/25 15:00 07/11/25 15:37 2 MG Labetalol HCl 10 mg Q2HPRN PRN IV 07/12/25 11:15 Acetaminophen/ Hydrocodone Bitart 1 tab Q4HPRN PRN PO 07/12/25 11:15 07/12/25 13:27 1 TAB Nifedipine 30 mg DAILY PO 07/13/25 10:00 Hydralazine HCl 10 mg Q6HP PRN IV 07/12/25 13:45 Losartan Potassium 100 mg DAILY PO 07/13/25 10:00 Laboratory Results Laboratory Tests 07/11/25 05:54 Urinalysis Test 07/10/25 06:43 Urine Color Yellow (Yellow) Urine Clarity Clear (Clear) Urine pH 6.0 (5.0-9.0) Urine Specific [place] 1.020 (1.001-1.035) Urine Protein Trace (Negative) H Urine Ketones Negative (Negative) Urine Blood Negative /uL (Negative) Urine Nitrite Negative (Negative) Urine Bilirubin Negative (Negative) Urine Urobilinogen 2 mg/dL (Negative) H Urine Leukocyte Esterase 2+ /uL (Negative) Urine RBC 1 /hpf (0 - 4) Urine Microscopic WBC 6 /HPF (0-5) H Urine Squamous Epithelial Cells Few /hpf (<5) Urine Bacteria None seen /hpf (None Seen) Urine Glucose Normal mg/dL (Normal) Labs and/or images reviewed: Labs reviewed by me, Image(s) reviewed by me Assessment/Plan Assessment/Plan 60-year-old female with a history of hypertension, diabetes (on Ozempic), alcohol abuse and gastric bypass surgery presents to the ED for evaluation of alcohol withdrawal. Although she had been sober for over a year, she resumed heavy alcohol use over the past two weeks. She last consumed alcohol at 3:00 p.m. yesterday and began experiencing visual hallucinations and mild tremors, prompting her to seek care. Three days ago, while intoxicated, she fell and struck the back of her head, possibly losing consciousness. She denies use of illicit drugs and reports chronic daily alcohol consumption. Previously seen earlier this week for similar complaints patient left AMA. 07/12 patient has hypertensive crisis today, alcohol withdrawal has resolved. Waiting for recuperative care placement we should continuing to outpatient. Blood pressure went from 80 to 190, in hypertensive crisis requiring IV hydralazine we will continue care for 1 more day. We will increase losartan to 100 and start Procardia 30. diagnosis Acute alcohol withdrawal Hypertensive crisis/hypertensive urgency Alcohol dependence Obesity grade 1, BMI 34.7 Essential hypertension, poorly controlled Normocytic anemia UTI possible Recurrent falls Hyper trophic cardiomyopathy, likely due to poorly controlled hypertension GERD Alcohol gastritis Chronic back pain History anxiety depression disorder # Acute alcohol withdrawal: moderate risk on CIWA protocol with iv ativan, mvi, folate, and thiamine, tomorrow can consider bannana bags. cxr to r/o aspiration pneumonia, on room air. # Grade 1 obesity 34.7 BMI: weight loss counseling., on home Ozempic, we will hold Ozempic given nausea and vomiting. Careful history to rule out any family history of thyroid cancer. # Uncontrolled essential hypertension: Likely complicated due to medication noncompliance, alcohol abuse, target blood pressure 140/90 or below, IV propranolol, start oral home antihypertensives. Home medication losartan 50 mg p.o. daily, patient do not remember taking medications regularly. # Normocytic anemia: HnH, 11.1, RDW, 60.7, could be dietary, denies any active bleeding. dietary intake of iron to continue. # Likely UTI: nonspecific symptoms, lower abdominal pain, rule out other causes of abdominal pain, lipase, lactic acid negative. iv ceftriaxone to continue. # Recurrent fall: Likely due to alcohol intoxication, folate and b12 to check, ambulatory. Patient fell down this time on head, no acute local neuromuscular deficits noted. Mildly agitated likely due to withdrawals, CT head negative for intracranial acute processes but left parietal scalp edema likely due to blunt trauma. Pain control, check for B12, folate, replenished, physical therapy before discharge. For safe discharge. Chronic ischemic changes in the right frontal white matter likely due to underlying vascular/hypertensive disease. # Unknown LVEF: Known LVH, hypertensive hydralazine, blood pressure control, given severe alcohol abuse, ruled out dilated cardiomyopathy/echo/LVEF f to check. # GERD/alcohol gastritis: Continue PPI # Chronic back pain: Ibuprofen and cyclobenzaprine, we will hold NSAIDs, PT eval, for now can use lidocaine patch as needed. Gabapentin 400 mg t.i.d., can restart as it will help also with the alcohol withdrawal symptoms. # Known depression/anxiety disorder: Fluoxetine 40 mg daily to continue. 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
[2025-07-12] MEDS: LOSARTAN POTASSIUM 50 MG TAB PO ONE (14:53)
[2025-07-13 01:00] VITALS: BP 138/81; PULSE 85; RESP 16; TEMP 98.1; O2SAT 95
[2025-07-13 05:00] VITALS: BP 166/95; PULSE 81; RESP 14; TEMP 98.1; O2SAT 94
[2025-07-13 05:44] LABS: Anion Gap 7 (5-15); Carbon Dioxide 31 mmol/L (20-31); Chloride 103 mmol/L (98-107); Potassium 4.6 mmol/L (3.5-5.1); Sodium 141 mmol/L (136-145)
[2025-07-13 05:45] LABS: Calcium 9.1 mg/dL (8.7-10.4)
[2025-07-13 05:50] LABS: BUN/Creatinine Ratio 14.3 (10.0-20.0); Blood Urea Nitrogen 15 mg/dL (9-23)
[2025-07-13 05:54] LABS: Glucose 111 mg/dL (74-106)
[2025-07-13] MEDS: LABETALOL HCL 20 MG/4 ML VL IV PRN (06:01)
[2025-07-13 08:00] VITALS: PULSE 87; RESP 18; O2SAT 96
[2025-07-13 08:49] VITALS: BP 148/84; PULSE 76; RESP 17; TEMP 97.6; O2SAT 90
[2025-07-13] MEDS: LOSARTAN POTASSIUM 50 MG TAB PO SCH (09:34)
--- NOTE | 2025-07-13 10:19 | DVHPN2 ---
Reviewed: H&P Changes from previous H/P or p: No Changes General: Per HPI Eyes: No Pain, No Vision change, No Conjunctivae inflammation, No Eyelid inflammation, No Other, No Redness ENT: No Ear pain, No Ear discharge, No Nose pain, No Nose discharge, No Nose congestion, No Mouth pain, No Mouth swelling, No Throat pain, No Throat swelling, No Other Cardiovascular: No Chest Pain; Palpitations; No Orthopnea, No Paroxysmal Noc. Dyspnea, No Edema, No Lt Headedness, No Other Respiratory: No Cough, No Dry, No Shortness of breath, No SOB with excertion, No Wheezing, No Hemoptysis, No Pleuritic Pain, No Sputum, No Other Gastrointestinal: Nausea; No Vomiting, No Abdominal Pain, No Diarrhea, No Constipation, No Melena, No Hematochezia, No Other Genitourinary: Dysuria, Frequency, Incontinence; No Hematuria, No Retention, No Other Musculoskeletal: No other, No neck pain, No shoulder pain, No arm pain, No back pain, No hand pain, No leg pain, No foot pain Skin: No Rash, No Lesions, No Jaundice, No Bruising, No Other Objective Vitals Vital Signs Date Time Temp Pulse Resp B/P (MAP) Pulse Ox O2 Delivery O2 Flow Rate FiO2 07/13/25 09:34 162/84 07/13/25 08:49 97.6 76 17 90 97.6 07/12/25 20:00 Room Air* 0 21 Intake/Output Intake and Output 07/13/25 07:00 Intake Total 1575 ml Output Total 0 ml Balance 1575 ml Intake Oral 1525 ml IV Total 50 ml Output Stool Total 0 ml # Voids 13 # Bowel Movements 1 Exam General Appearance: Alert, Oriented X3, mild distress HEENT: Atraumatic, PERRLA, EOMI, Other (dry mucosa) Respiratory: Clear to auscultation, Normal air movement Cardiovascular: Regular rate, Normal S1, Normal S2, No murmurs Abdominal: Normal bowel sounds, Soft, No tenderness, No hepatospenomegaly, No masses Extremities: No clubbing, No cyanosis, Other (mild tremors b/l ) Skin: No rashes, No breakdown, No significant lesion Neuro: Normal gait, Normal speech, Strength at 5/5 X4 ext, Normal tone, Other Psych/Mental Status: Other (anxious. ) General Appearance: Alert, Oriented X3 HEENT: Atraumatic Lungs: Clear to auscultation Cardiovascular: Regular rate, Normal S1, Normal S2 Abdomen: Normal bowel sounds Medications Current Medications Medications Dose Ordered Sig/Radha Route Start Time Stop Time Status Last Admin Dose Admin Ondansetron HCl 4 mg Q4HP PRN IV 07/10/25 09:30 Docusate Sodium 100 mg BIDPRN PRN PO 07/10/25 09:30 Ceftriaxone Sodium 50 ml @ 100 mls/hr DAILY IV 07/10/25 10:00 07/13/25 09:33 100 MLS/HR Enoxaparin Sodium 40 mg DAILY SC 07/10/25 10:00 07/15/25 11:59 07/13/25 09:34 40 MG Thiamine HCl 100 mg DAILY PO 07/11/25 10:00 07/13/25 09:34 100 MG Multivitamins 1 tab DAILY PO 07/11/25 10:00 07/13/25 09:34 1 TAB Lorazepam 1 mg Q2HPRN PRN IV 07/10/25 09:45 Fluoxetine HCl 40 mg DAILY PO 07/10/25 10:00 07/12/25 09:25 40 MG Folic Acid 1 mg DAILY PO 07/11/25 10:00 07/13/25 09:34 1 MG Morphine Sulfate 2 mg Q4HPRN PRN IV 07/11/25 15:00 07/11/25 15:37 2 MG Labetalol HCl 10 mg Q2HPRN PRN IV 07/12/25 11:15 07/13/25 06:01 10 MG Acetaminophen/ Hydrocodone Bitart 1 tab Q4HPRN PRN PO 07/12/25 11:15 07/13/25 05:58 1 TAB Nifedipine 30 mg DAILY PO 07/13/25 10:00 07/13/25 09:33 30 MG Hydralazine HCl 10 mg Q6HP PRN IV 07/12/25 13:45 Losartan Potassium 100 mg DAILY PO 07/13/25 10:00 07/13/25 09:34 100 MG Laboratory Results Laboratory Tests 07/11/25 05:54 07/13/25 04:49 Chemistry Test 07/13/25 04:49 Calcium Level 9.1 mg/dL (8.7-10.4) Urinalysis Test 07/10/25 06:43 Urine Color Yellow (Yellow) Urine Clarity Clear (Clear) Urine pH 6.0 (5.0-9.0) Urine Specific [place] 1.020 (1.001-1.035) Urine Protein Trace (Negative) H Urine Ketones Negative (Negative) Urine Blood Negative /uL (Negative) Urine Nitrite Negative (Negative) Urine Bilirubin Negative (Negative) Urine Urobilinogen 2 mg/dL (Negative) H Urine Leukocyte Esterase 2+ /uL (Negative) Urine RBC 1 /hpf (0 - 4) Urine Microscopic WBC 6 /HPF (0-5) H Urine Squamous Epithelial Cells Few /hpf (<5) Urine Bacteria None seen /hpf (None Seen) Urine Glucose Normal mg/dL (Normal) Labs and/or images reviewed: Labs reviewed by me, Image(s) reviewed by me Assessment/Plan Assessment/Plan 60-year-old female with a history of hypertension, diabetes (on Ozempic), alcohol abuse and gastric bypass surgery presents to the ED for evaluation of alcohol withdrawal. Although she had been sober for over a year, she resumed heavy alcohol use over the past two weeks. She last consumed alcohol at 3:00 p.m. yesterday and began experiencing visual hallucinations and mild tremors, prompting her to seek care. Three days ago, while intoxicated, she fell and struck the back of her head, possibly losing consciousness. She denies use of illicit drugs and reports chronic daily alcohol consumption. Previously seen earlier this week for similar complaints patient left AMA. 07/12 patient has hypertensive crisis today, alcohol withdrawal has resolved. Waiting for recuperative care placement we should continuing to outpatient. Blood pressure went from 80 to 190, in hypertensive crisis requiring IV hydralazine we will continue care for 1 more day. We will increase losartan to 100 and start Procardia 30. 07/13: Patient blood pressure this a.m. is 160s systolic, we will give blood pressure medications and 10:00 a.m., we will watch blood pressure, if blood pressure continues to improve with losartan 100 and Procardia 30, we will discharge home with those medications. Patient remains CIWA score low approximately 0. Alcohol withdrawal resolved. Social workers we will continue to work towards recuperative care as patient goes outpatient. She is currently homeless. diagnosis Acute alcohol withdrawal Hypertensive crisis/hypertensive urgency Alcohol dependence Obesity grade 1, BMI 34.7 Essential hypertension, poorly controlled Normocytic anemia UTI possible Recurrent falls Hyper trophic cardiomyopathy, likely due to poorly controlled hypertension GERD Alcohol gastritis Chronic back pain History anxiety depression disorder # Acute alcohol withdrawal: moderate risk on CIWA protocol with iv ativan, mvi, folate, and thiamine, tomorrow can consider bannana bags. cxr to r/o aspiration pneumonia, on room air. # Grade 1 obesity 34.7 BMI: weight loss counseling., on home Ozempic, we will hold Ozempic given nausea and vomiting. Careful history to rule out any family history of thyroid cancer. # Uncontrolled essential hypertension: Likely complicated due to medication noncompliance, alcohol abuse, target blood pressure 140/90 or below, IV propranolol, start oral home antihypertensives. Home medication losartan 50 mg p.o. daily, patient do not remember taking medications regularly. # Normocytic anemia: HnH, 11.1, RDW, 60.7, could be dietary, denies any active bleeding. dietary intake of iron to continue. # Likely UTI: nonspecific symptoms, lower abdominal pain, rule out other causes of abdominal pain, lipase, lactic acid negative. iv ceftriaxone to continue. # Recurrent fall: Likely due to alcohol intoxication, folate and b12 to check, ambulatory. Patient fell down this time on head, no acute local neuromuscular deficits noted. Mildly agitated likely due to withdrawals, CT head negative for intracranial acute processes but left parietal scalp edema likely due to blunt trauma. Pain control, check for B12, folate, replenished, physical therapy before discharge. For safe discharge. Chronic ischemic changes in the right frontal white matter likely due to underlying vascular/hypertensive disease. # Unknown LVEF: Known LVH, hypertensive hydralazine, blood pressure control, given severe alcohol abuse, ruled out dilated cardiomyopathy/echo/LVEF f to check. # GERD/alcohol gastritis: Continue PPI # Chronic back pain: Ibuprofen and cyclobenzaprine, we will hold NSAIDs, PT eval, for now can use lidocaine patch as needed. Gabapentin 400 mg t.i.d., can restart as it will help also with the alcohol withdrawal symptoms. # Known depression/anxiety disorder: Fluoxetine 40 mg daily to continue. 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
[2025-07-13 12:46] VITALS: BP 134/88; PULSE 87; RESP 18; TEMP 97.2; O2SAT 96
[2025-07-13] MEDS ORDERED: LOSA100T14 PO (13:47)
[2025-07-13] MEDS ORDERED: NIFE1TAB36 PO (13:47)
--- NOTE | 2025-07-13 13:48 | DVHDS2 ---
Discharge Summary Date of Admission Jul 10, 2025 at 09:24 Date of Discharge: Jul 13, 2025 Labs/Diagnostic Data: Laboratory Results Test 07/13/25 04:49 07/11/25 05:54 07/10/25 11:02 07/10/25 06:43 Sodium Level 141 mmol/L (136-145) Potassium Level 4.6 mmol/L (3.5-5.1) Chloride Level 103 mmol/L (98-107) Carbon Dioxide Level 31 mmol/L (20-31) Anion Gap 7 (5-15) Blood Urea Nitrogen 15 mg/dL (9-23) Creatinine 1.05 mg/dL (0.550-1.02) Glomerular Filtration Rate Calc 60 mL/min (>90) BUN/Creatinine Ratio 14.3 (10.0-20.0) Serum Glucose 111 mg/dL (74-106) Calcium Level 9.1 mg/dL (8.7-10.4) White Blood Count 5.3 10^3/uL (4.4-10.8) Red Blood Count 3.29 10^6/uL (4.0-5.20) Hemoglobin 10.5 g/dL (12.2-16.2) Hematocrit 31.4 % (36.0-46.0) Mean Corpuscular Volume 95.6 fL (80.0-100.0) Mean Corpuscular Hemoglobin 32.0 pg (28.0-32.0) Mean Corpuscular Hemoglobin Concent 33.4 g/dL (32.0-36.0) Red Cell Distribution Width 16.8 % (11.8-14.3) Platelet Count 209 10^3/uL (140-450) Mean Platelet Volume 7.6 fL (6.9-10.8) Neutrophils (%) (Auto) 73.5 % (37.0-80.0) Lymphocytes (%) (Auto) 16.7 % (10.0-50.0) Monocytes (%) (Auto) 7.3 % (0.0-12.0) Eosinophils (%) (Auto) 2.1 % (0.0-7.0) Basophils (%) (Auto) 0.4 % (0.0-2.0) Neutrophils # (Auto) 3.9 10 ^3/uL (1.6-8.6) Lymphocytes # (Auto) 0.9 10 ^3/uL (0.4-5.4) Monocytes # (Auto) 0.4 10 ^3/uL (0-1.3) Eosinophils # (Auto) 0.1 10 ^3/uL (0-0.8) Basophils # (Auto) 0 10 ^3/uL (0-0.2) Nucleated Red Blood Cells 0.1 % Total Bilirubin 0.5 mg/dL (0.2-1.0) Aspartate Amino Transferase (AST) 21 U/L (13-40) Alanine Aminotransferase (ALT) 18 U/L (7-40) Alkaline Phosphatase 148 U/L (46-116) Total Protein 6.2 g/dL (5.7-8.2) Albumin 3.6 g/dL (3.2-4.8) Prothrombin Time 10.7 sec (9.3-11.8) Prothrombin Time INR 1.01 (0.9-1.15) Urine Color Yellow (Yellow) Urine Clarity Clear (Clear) Urine pH 6.0 (5.0-9.0) Urine Specific [place] 1.020 (1.001-1.035) Urine Protein Trace (Negative) Urine Ketones Negative (Negative) Urine Blood Negative /uL (Negative) Urine Nitrite Negative (Negative) Urine Bilirubin Negative (Negative) Urine Urobilinogen 2 mg/dL (Negative) Urine Leukocyte Esterase 2+ /uL (Negative) Urine RBC 1 /hpf (0 - 4) Urine Microscopic WBC 6 /HPF (0-5) Urine Squamous Epithelial Cells Few /hpf (<5) Urine Bacteria None seen /hpf (None Seen) Urine Glucose Normal mg/dL (Normal) Urine Opiates Screen Neg (NEGATIVE) Urine Fentanyl Screen Neg (NEGATIVE) Urine Barbiturates Screen Neg (NEGATIVE) Urine Phencyclidine Screen Neg (NEGATIVE) Urine Amphetamines Screen Neg (NEGATIVE) Urine Benzodiazepines Screen Neg (NEGATIVE) Urine Cocaine Screen Neg (NEGATIVE) Urine Cannabinoids Screen Neg (NEGATIVE) Test 07/10/25 05:32 Lactic Acid Level 1.4 mmol/L (0.4-2.0) Magnesium Level 1.7 mg/dL (1.6-2.6) Troponin I High Sensitivity 18 ng/L (</=34) Lipase 39 U/L (12-53) Vitamin B12 Level 1107 pg/mL (211-911) Folic Acid 8.37 ng/mL (>5.38) Plasma/Serum Blood Alcohol < 3.0 mg/dL (<10) Other Laboratory Tests 07/13/25 04:49 07/11/25 05:54 Brief Hx & Hospital Course: 60-year-old female with a history of hypertension, diabetes (on Ozempic), alcohol abuse and gastric bypass surgery presents to the ED for evaluation of alcohol withdrawal. Although she had been sober for over a year, she resumed heavy alcohol use over the past two weeks. She last consumed alcohol at 3:00 p.m. yesterday and began experiencing visual hallucinations and mild tremors, prompting her to seek care. Three days ago, while intoxicated, she fell and struck the back of her head, possibly losing consciousness. She denies use of illicit drugs and reports chronic daily alcohol consumption. Previously seen earlier this week for similar complaints patient left AMA. 07/12 patient has hypertensive crisis today, alcohol withdrawal has resolved. Waiting for recuperative care placement we should continuing to outpatient. Blood pressure went from 80 to 190, in hypertensive crisis requiring IV hydralazine we will continue care for 1 more day. We will increase losartan to 100 and start Procardia 30. 07/13: Patient blood pressure this a.m. is 160s systolic, we will give blood pressure medications and 10:00 a.m., we will watch blood pressure, if blood pressure continues to improve with losartan 100 and Procardia 30, we will discharge home with those medications. Patient remains CIWA score low approximately 0. Alcohol withdrawal resolved. Social workers we will continue to work towards recuperative care as patient goes outpatient. She is currently homeless. diagnosis Acute alcohol withdrawal hypertensive urgency Hypertensive crisis/ Alcohol dependence Obesity grade 1, BMI 34.7 Essential hypertension, poorly controlled Normocytic anemia UTI possible Recurrent falls Hyper trophic cardiomyopathy, likely due to poorly controlled hypertension GERD Alcohol gastritis Chronic back pain History anxiety depression disorder Plan: - recuperative care as patient goes outpatient. -Continue to take losartan 100mg and Procardia 30mg daily -Close follow up with PCP - continuing to avoid any alcohol intake. Discuss naltrexone with PCP to decrease craving. -DC clinic 1 week Condition at Discharge: Fair Final Diagnosis/Problems List Acute alcohol withdrawal hypertensive urgency Hypertensive crisis/ Alcohol dependence Obesity grade 1, BMI 34.7 Essential hypertension, poorly controlled Normocytic anemia UTI possible Recurrent falls Hyper trophic cardiomyopathy, likely due to poorly controlled hypertension GERD Alcohol gastritis Chronic back pain History anxiety depression disorder Discharge Disposition: Home Discharge Instruct/Medications Scheduled Losartan Potassium (Losartan Potassium), 50 MG PO DAILY Discharge Statement: "Patient was advised to return to the ER or call 911 if any headaches, dizziness, shortness of breath, chest pain, abdominal pain, bleeding, fevers, or worsening of medical condition. Patient was counseled about treatment plan, medications, possible side effects, patientverbalized understanding. All questions were answered to the best of my ability. This discharge took greater then 30 minutes in planning, reviewing documentation, counseling the patient, and discussing with other team members." ASSESSMENT ASSESSMENT Assessment Date of Service: Jul 13, 2025 Billing Provider: ELO DAVID MD Common Visit Codes: 41298-DTD/OBS DISCH DAY >30min ELO DAVID MD Jul 13, 2025 13:48
== END 2025-07-13 17:07 | disposition home or self-care (01) | DRG 241 ==
LOC: ER 04:21 → OVERFLOW 09:24 → TELE-CENTR 22:15 → CENTRAL 07-12 14:57
PROVIDERS: ADMIT Student in an Organized Health Care Education/Training Program; ATTEND Student in an Organized Health Care Education/Training Program
DX: K29.20 Alcoholic gastritis without bleeding (principal); S09.8XXA Other specified injuries of head, initial encounter; I16.0 Hypertensive urgency; I42.2 Other hypertrophic cardiomyopathy; D64.9 Anemia, unspecified; E11.9 Type 2 diabetes mellitus without complications; N39.0 Urinary tract infection, site not specified; E66.811 Obesity, class 1; F32.A Depression, unspecified; F10.239 Alcohol dependence with withdrawal, unspecified; I10 Essential (primary) hypertension; K21.9 Gastro-esophageal reflux disease without esophagitis; F41.9 Anxiety disorder, unspecified; G89.29 Other chronic pain; M54.9 Dorsalgia, unspecified; R29.6 Repeated falls; Z59.00 Homelessness unspecified; Z68.34 Body mass index [BMI] 34.0-34.9, adult; Z98.84 Bariatric surgery status; Z91.148 Patient's other noncompliance with medication regimen for other reason; Z79.899 Other long term (current) drug therapy; X58.XXXA Exposure to other specified factors, initial encounter; Y93.89 Activity, other specified; Y92.89 Other specified places as the place of occurrence of the external cause; Y99.8 Other external cause status; Y90.0 Blood alcohol level of less than 20 mg/100 ml
CPT/HCPCS: 36415; 70450; 71046; 80048; 80053; 80307; 80320; 81001; 82607; 82746; 83605; 83690; 83735; 84484; 85025; 85610; 93306; 96361; 96374; 97162; G0378; J7060